=== PATIENT | female | born 1990 | race Hispanic/Latino ===

== ENCOUNTER 2022-09-14 21:17 | Inpatient (IN) | payer OTHER, SELFPAY ==
[2022-09-14] MEDS ORDERED: NS w/ Oxytocin 30 units 500 ML ONE (21:45)
[2022-09-14 21:48] VITALS: BMI 26.6
[2022-09-14] MEDS ORDERED: Lidocaine 1% (PF) 30 ML VIAL ONE (22:05)
[2022-09-14] MEDS ORDERED: Lidocaine 1% (PF) 30 ML VIAL SC PRN (22:13)
[2022-09-14] MEDS ORDERED: Ondansetron PF 4 MG/2 ML Vial IVP PRN (22:13)
[2022-09-14] MEDS ORDERED: Promethazine HCl 25 MG/ML VIAL IM PRN (22:13)
[2022-09-14] MEDS ORDERED: Ibuprofen 800 MG TAB PO PRN (22:13)
[2022-09-14] MEDS ORDERED: hydrALAZINE 20 MG/ML VIAL SLOW IVP PRN (22:13)
[2022-09-14] MEDS ORDERED: Butorphanol Tartrate 1 MG/ML VIAL SLOW IVP PRN (22:13)
[2022-09-14] MEDS ORDERED: HYDROcodone/Acetaminophen 5/325 mg Tablet PO PRN ×2 (22:13)
[2022-09-14] MEDS ORDERED: NS w/ Oxytocin 30 units 500 ML IV SCH (22:15)
[2022-09-14] MEDS ORDERED: Lactated Ringer's 1,000 ML IV SCH ×2 (22:15)
[2022-09-14 22:42] LABS: Hemoglobin 13.7 g/dL (12.0-15.5); Mean Corpuscular HGB CONC 35.6 g/dL (32.0-36.0); Mean Corpuscular Hemoglobin 29.8 pg (27.0-33.0); Mean Corpuscular Volume 83.7 fl (81.6-98.3); Mean Platelet Volume 11.9 fl (7.4-10.4); Platelet Count 243 10x3/uL (150-450); White Blood Cell (WBC) Count 10.7 10x3/uL (3.5-10.5)
[2022-09-14 23:17] LABS: HBSAg Index 0.13 S/CO (0-0.99); Hep B Surf Ag Non-Reactive S/CO (NonReactive)
[2022-09-14 23:18] LABS: Syphilis Antibody Nonreactive (Nonreactive); Syphilis Antibody Index 0.03 S/CO (<1.00 Non-Reactive)
[2022-09-15] MEDS ORDERED: Zolpidem Tartrate 5 MG TAB PO PRN (06:01)
[2022-09-15] MEDS ORDERED: hydrALAZINE 20 MG/ML VIAL SLOW IVP PRN (06:01)
[2022-09-15] MEDS ORDERED: Preparation H Ointment 28 GM TUBE PR PRN (06:01)
[2022-09-15] MEDS ORDERED: Promethazine HCl 25 MG/ML VIAL IM PRN (06:01)
[2022-09-15] MEDS ORDERED: Ondansetron PF 4 MG/2 ML Vial IVP PRN (06:01)
[2022-09-15] MEDS ORDERED: HYDROcodone/Acetaminophen 5/325 mg Tablet PO PRN ×2 (06:01)
[2022-09-15] MEDS ORDERED: Boostrix 0.5 ML (Tdap) VIAL (>/=7 yrs of age) IM ONE (06:01)
[2022-09-15] MEDS ORDERED: Lanolin Ointment 7 GM TUBE TOP PRN (06:01)
[2022-09-15] MEDS ORDERED: Benzocaine-Menthol 82.5 ML CAN TOP PRN (06:01)
[2022-09-15] MEDS ORDERED: Bisacodyl 10 MG SUPP PR PRN (06:01)
[2022-09-15] MEDS ORDERED: NS w/ Oxytocin 30 units 500 ML IV SCH (06:01)
[2022-09-15] MEDS ORDERED: Milk Of Magnesia 30 ML UDCUP PO PRN (06:01)
[2022-09-15] MEDS ORDERED: diphenhydrAMINE 25 MG CAP PO PRN (06:01)
[2022-09-15] MEDS: Prenatal Vitamin 1 TAB PO SCH (08:05)
[2022-09-15] MEDS: Docusate 100 MG CAP PO SCH ×2 (08:05→21:32)
[2022-09-15] MEDS: Ibuprofen 800 MG TAB PO SCH ×3 (08:05→21:32)
[2022-09-15 08:20] LABS: SARS-CoV-2 NAA Rapid Test Not Detected (NotDetected)
[2022-09-16] MEDS: Ibuprofen 800 MG TAB PO SCH (05:08)
[2022-09-16] MEDS: Docusate 100 MG CAP PO SCH (08:32)
[2022-09-16] MEDS: Prenatal Vitamin 1 TAB PO SCH (08:32)
[2022-09-16 08:35] VITALS: BP 111/68; TEMP 97.5
== END 2022-09-16 11:20 | disposition home or self-care (01) | DRG 807 ==
LOC: CSHLD/OP 21:17 → CSHLD 22:05 → CSHPP 09-15 08:23
PROVIDERS: ADMIT Student in an Organized Health Care Education/Training Program; ATTEND Student in an Organized Health Care Education/Training Program
PROC: 10E0XZZ Delivery of Products of Conception, External Approach (ICD-10-PCS; principal; 2022-09-14)
PROC: 0HQ9XZZ Repair Perineum Skin, External Approach (ICD-10-PCS; 2022-09-14)
PROC: 10907ZC Drainage of Amniotic Fluid, Therapeutic from Products of Conception, Via Natural or Artificial Opening (ICD-10-PCS; 2022-09-14)
DX: O77.0 Labor and delivery complicated by meconium in amniotic fluid (principal); Z37.0 Single live birth; O70.0 First degree perineal laceration during delivery; Z91.018 Allergy to other foods; Z3A.39 39 weeks gestation of pregnancy; Z20.822 Contact with and (suspected) exposure to COVID-19
CPT/HCPCS: 85027; 86780; 86850; 86900; 86901; 87340; 99285; J2001; J2590; U0002